=== PATIENT | female | born 1980 | race Caucasian/White ===

== ENCOUNTER → 2017-02-07 | Outpatient (CLI) | payer BC ==
[~2017-02-07] MED LIST: AMPH20TA2 PO; HYDR-5688 PO; IBUP-1050 PO; LEVO112T4 PO; ONDA8TAB6 PO
== END | disposition home or self-care (01) ==
LOC: C.PAPS 13:56
PROVIDERS: ATTEND Obstetrics & Gynecology
DX: Z01.419 Encounter for gynecological examination (general) (routine) without abnormal findings (principal); R87.610 Atypical squamous cells of undetermined significance on cytologic smear of cervix (ASC-US); Z11.51 Encounter for screening for human papillomavirus (HPV)

== ENCOUNTER → 2017-02-07 | Outpatient (CLI) | payer BC ==
[~2017-02-07] MED LIST changes: +GADAVIST IV PRN
--- NOTE | 2017-02-07 20:09 | DIAGNOSTIC IMAGING REPORT ---
BRAIN COMBO HISTORY: 36 years-old Female HEADACHES chronic headaches with dizziness. History of fall. COMPARISON: None available TECHNIQUE: Multiplanar multisequence MRI of the brain was obtained both with and without the use of 7 mL Gadavist FINDINGS: There is no restricted diffusion. Midline structures including the corpus callosum, brainstem, optic chiasm, pineal and pituitary glands are within normal limits. No cerebellar tonsillar herniation. No significant cervical spine degenerative changes identified. No acute intracranial hemorrhage, midline shift, abnormal extra-axial collections, hydrocephalus or intracranial mass identified. There are a few punctate foci of increased T2/FLAIR signal within the subcortical and periventricular white matter of the cerebral hemispheres bilaterally (see bookmarks). There is no abnormal intra-axial or extra-axial enhancement identified. The major flow voids at the level of the skull base are patent. Orbits are symmetric. Mastoid air cells and paranasal sinuses are generally clear. Scalp, calvarium and soft tissues are unremarkable. IMPRESSION: 1. No acute intracranial abnormality identified. No abnormal enhancement. 2. A few scattered punctate foci of increased T2/FLAIR signal are seen within the periventricular and subcortical white matter of the cerebral hemispheres bilaterally, likely of no clinical significance. Differential considerations would include gliosis from chronic migraines or early chronic microvascular ischemic changes among other etiologies. The above report was generated using voice recognition software. It may contain grammatical, syntax or spelling errors. Electronically signed by: Brad Isabel M.D. 02/07/2017 8:08 PM Dictated Date/Time: 02/07/2017 8:00 PM
== END | disposition home or self-care (01) ==
LOC: C.MRI 18:22
PROVIDERS: ATTEND Family Medicine
DX: R51 Headache (principal)

== ENCOUNTER → 2017-02-14 | Outpatient (CLI) | payer BC ==
[~2017-02-14] MED LIST changes: -GADAVIST IV PRN
--- NOTE | 2017-02-14 12:37 | DIAGNOSTIC IMAGING REPORT ---
Brain MRA HISTORY: HEADACHE TECHNIQUE: 3-D [id number] MRA of the brain was performed without contrast. COMPARISON STUDY: Brain MRI 02/07/2017. FINDINGS: Visualized intracranial internal carotid arteries, distal vertebral arteries, and basilar artery are widely patent. 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 IMPRESSION: No significant stenosis, occlusion, or aneurysm within the [place] of [place]. Electronically signed by: Oniel Michelle M.D. 02/14/2017 12:36 PM Dictated Date/Time: 02/14/2017 12:32 PM
== END | disposition home or self-care (01) ==
LOC: C.MRI 11:43
PROVIDERS: ATTEND Family Medicine
DX: R51 Headache (principal)

== ENCOUNTER 2019-08-25 08:02 | Observation (INO) ==
--- NOTE | 2019-08-07 10:35 | PAT Medication Instructions ---
Medication Instructions Date of Service August 07, 2019 Home Medications dextroamphetamine-amphetamine 25 mg PO QAM levothyroxine 112 mcg PO QAM fluticasone propionate 50 mcg/actuation nasal spray,suspension 2 sprays INTRANASAL QAM ibuprofen 200 mg tablet 800 mg PO TID PRN dextroamphetamine-amphetamine 10 mg tablet 5 - 10 mg PO QPM verapamil 180 mg PO QAM ASK your surgeon for instructions ibuprofen 200 mg tablet 800 mg PO TID PRN DO NOT take the morning of surgery dextroamphetamine-amphetamine 25 mg PO QAM Take morning of surgery With a small sip of water, OTHERWISE NOTHING TO EAT OR DRINK AFTER MIDNIGHT: levothyroxine 112 mcg PO QAM fluticasone propionate 50 mcg/actuation nasal spray,suspension 2 sprays INTR ANASAL QAM verapamil 180 mg PO QAM Take evening before surgery dextroamphetamine-amphetamine 10 mg tablet 5 - 10 mg PO QPM Other Notes If you have any questions please call us at [phone] or [phone] or [phone] or [phone]
--- NOTE | 2019-08-07 15:28 | Anesthesiology Consultation ---
Date of Service August 07, 2019 Assessment & Plan (1) Encounter for pre-operative examination: COVID Status: As of 08/05 nurse assessment, patient denies travel to endemic area, known exposure/sick contacts, or symptoms of COVID19. Preoperative COVID19 testing to be completed prior to surgery. TEST AM DOS. Chart Review Chart Review: Acceptable Risk for Surgery and Patient seen in Pre Admission Testing Teaching & Discussion Instructed NPO after midnight before surgery, except medications with 15 cc of water. Medication instructions provided according to the PAT guidelines. History Surgery Operation Date: 08/25/19 09:50 Proposed Procedures p Robotic Total Laparoscopic Hysterectomy - Jessica Myers MD Height/Weight Height: 5 ft 3 in Weight: 71.8 kg Allergies Allergy/AdvReac Type Severity Reaction Status Date / Time No Known Allergies Allergy Verified 08/07/19 14:13 Medications Home Medications Medication Instructions Recorded Confirmed Last Taken dextroamphetamine-amphetamine 25 mg PO QAM 02/11/18 07/31/19 02/10/18 levothyroxine 112 mcg PO QAM 02/11/18 08/07/19 02/11/18 fluticasone propionate 50 2 sprays INTRANASAL QAM #1 gm 09/19/18 08/07/19 Unknown mcg/actuation nasal spray,suspension ibuprofen 200 mg tablet 800 mg PO TID PRN tab 09/19/18 08/07/19 Unknown dextroamphetamine-amphetamine 10 5 - 10 mg PO QPM 10/01/18 08/07/19 Unknown mg tablet verapamil 180 mg PO QAM 07/31/19 08/07/19 Unknown Past Medical History Medical History ADHD Benign essential hypertension Depression Genital warts Gestational diabetes Hypothyroidism Migraine Spina bifida DX'D AGE 12 YRS Varicella Exercise / Class Metabolic Activity II 4-5 Yardwork/Stairs/Walk up hill Past Family History Family History Grandfather (Maternal) TIA (transient ischemic attack) Myocardial infarction Kidney disease Father Hypertension Grandmother (Maternal) Malignant neoplasm of urinary bladder Grandmother (Paternal) Diabetic neuropathy Cardiac disorder Diabetes Grandfather Stroke Grandmother Diabetes Aunt Breast cancer, Onset Age: 64 Denies family history of Ovarian cancer Colorectal cancer Past Surgical History Surgical History History of cholecystectomy History of cryosurgery History of lumbar spinal fusion Past Anesthesia History No Hx of Anesthesia Complications FHX = mother = severe PONV History of PONV No Hx of PONV and No Hx of Motion Sickness Social History Smoking Status: Former smoker Do You Dip or Chew Tobacco: No Smoking End Date: QUIT 2002 Hx Alcohol Use: Yes Alcohol type: wine and hard liquor alcohol intake frequency: a few times a month Hx Substance Use: Yes substance use type: marijuana Substance Use Type Other:: MEDICAL MARIJUANA CARD-USES 2-5 X DAILY for anxiety Review of Systems Pt denies any recent chest pain, shortness of breath, palpitations, cough, fever or URI. Physical Exam Vital Signs BP: 116/84 P: 81bpm SPO2: 98% RA T: 98.2 F R: 16 ENMT Mouth: no dental restorations, no chipped teeth and no loose teeth Thyromental Distance: > or= 3.5 Finger Breadths (3.5) Mallampati Class: II Neck normal visual inspection; neck extension not limited Respiratory normal respiratory effort Auscultation: lungs clear to auscultation bilaterally Cardiovascular Rate/Rhythm: regular rate and regular rhythm Heart Sounds: no murmur Extremities: no edema Testing Laboratory Results 08/07/19 15:44 Blood Type O Positive 08/07/19 15:44 Antibody Screen NEGATIVE 08/07/19 15:44
[2019-08-07 16:07] LABS: Basophils # (auto) 0.02 K/uL (0-0.2); Basophils % (auto) 0.3 %; Eosinophils # (auto) 0.09 K/uL (0-0.5); Eosinophils % (auto) 1.5 %; Hematocrit (blood only) 39.2 % (37-47); Hemoglobin 13.1 g/dL (12.0-16.0); Immature Granulocytes # (auto) 0.01 K/uL (0.00-0.02); Immature Granulocytes % (auto) 0.2 %; Lymphocytes # (auto) 1.41 K/uL (1.2-3.4); Lymphocytes % (auto) 23.2 %; Mean Corpuscular Hemoglobin 30.8 pg (25-34); Mean Corpuscular Hgb Conc 33.4 g/dL (32-36); Mean Platelet Volume 10.6 fL (7.4-10.4); Monocytes % (auto) 4.9 %; Neutrophils # (auto) 4.25 K/uL (1.4-6.5); Neutrophils % (auto) 69.9 %; Platelet Count 208 K/uL (130-400); RDW Coefficient of Variation 13.1 % (11.5-14.5); RDW Standard Deviation 43.8 fL (36.4-46.3); Red Blood Count 4.26 M/uL (4.2-5.4); White Blood Count 6.08 K/uL (4.8-10.8)
[~2019-08-25 08:02] MED LIST changes: +ACETAMINOPHEN 1000 MG/100 ML IV IV ONE; -AMPH20TA2 PO; +CEFAZOLIN 2000MG 2,000 MG/15 ML SYR IV SCH; -HYDR-5688 PO; -IBUP-1050 PO; +LACTATED RINGER'S 1,000 ML IV SCH; -LEVO112T4 PO; +LR 15ML/HR IV SCH; -ONDA8TAB6 PO
[2019-08-25] MEDS ORDERED: ONDANSETRON INJ 2 MG/ML 2 ML VIAL IV PRN ×2 (09:44→15:07)
[2019-08-25] MEDS ORDERED: HYDROmorphone INJ 1 MG/ML SYRINGE IV PRN (09:44)
[2019-08-25] MEDS ORDERED: ePHEDrine sulfate 50 MG/ML AMP IV PRN (09:44)
[2019-08-25] MEDS ORDERED: ATROPINE SULFATE 0.1 MG/ML 10ML SYR IV PRN (09:44)
[2019-08-25] MEDS ORDERED: PHENYLEPHRINE 100MCG/ML 5ML SYR IV PRN (09:44)
[2019-08-25] MEDS ORDERED: MEPERIDINE HCL 25 MG/ML CARP/VIAL IV PRN ×2 (09:44→15:07)
[2019-08-25] MEDS ORDERED: LABETALOL HCL IV 5 MG/ML 20ML IV PRN (09:44)
--- NOTE | 2019-08-25 12:15 | History & Physical Bridge Note ---
Date of Service August 25, 2019 History & Physical Bridge Note I have examined the patient, reviewed the History & Physical and in the interval since the performance of the History & Physical I have noted the following changes of clinical significance: no changes noted
[2019-08-25] MEDS ORDERED: ROCURONIUM BROMIDE 10 MG/ML 5 ML VIAL IV ONE (12:53)
[2019-08-25] MEDS ORDERED: DEXAMETHASONE SOD INJ 4 MG/ML VIAL ONE (12:53)
[2019-08-25] MEDS ORDERED: NEOSTIGMINE METHYLSULFATE 5 MG/5 ML SYR ONE (12:53)
[2019-08-25] MEDS ORDERED: GLYCOPYRROLATE 0.2 MG/ML VIAL ONE (12:53)
[2019-08-25] MEDS ORDERED: ONDANSETRON INJ 2 MG/ML 2 ML VIAL ONE (12:53)
[2019-08-25] MEDS ORDERED: LIDOCAINE HCL 2% 2 ML VIAL/AMP(20MG/ML) INFIL ONE (12:53)
[2019-08-25] MEDS ORDERED: PROPOFOL IV EMULSION 10 MG/ML 20 ML VIAL IV ONE (12:53)
[2019-08-25] MEDS ORDERED: MIDAZOLAM HCL 1 MG/ML 2ML VIAL ONE (12:54)
[2019-08-25] MEDS ORDERED: fentaNYL citrate 100 MCG/2 ML VIAL ONE ×3 (12:54→14:59)
[2019-08-25] MEDS ORDERED: METHYLENE BLUE 0.5% 10 ML VIAL ONE (13:10)
[2019-08-25] MEDS ORDERED: KETOROLAC 30 MG/ML VIAL ONE (14:34)
[2019-08-25] MEDS ORDERED: OXYCODONE/ACETAMINOPHEN 5mg/325mg TAB PO PRN ×2 (15:07)
[2019-08-25] MEDS ORDERED: IBUPROFEN 600 MG TAB PO PRN (15:07)
[2019-08-25] MEDS ORDERED: KETOROLAC 30 MG/ML VIAL IV PRN (15:07)
[2019-08-25] MEDS ORDERED: SIMETHICONE 80 MG CHEW PO PRN (15:07)
[2019-08-25] MEDS ORDERED: ACETAMINOPHEN 325 MG TAB PO PRN (15:07)
[2019-08-25] MEDS ORDERED: PROMETHAZINE HCL 25 MG in SODIUM CHLORIDE 0.9% 50 ML IV PRN (15:07)
[2019-08-25] MEDS ORDERED: MAGNESIUM HYDROXIDE SUSP 30 ML UDC PO PRN (15:07)
[2019-08-25] MEDS ORDERED: MEPERIDINE HCL 50 MG/ML CARP IV PRN (15:07)
[2019-08-25] MEDS ORDERED: PROMETHAZINE HCL 12.5 MG in SODIUM CHLORIDE 0.9% 50 ML IV PRN (15:07)
--- NOTE | 2019-08-25 15:13 | Operative Report ---
PG Post Operative Report Pre & Post Diagnosis Operation Date: 08/25/19 09:50 Pre-Op Diagnosis: Menorrhagia, Uterine Enlargement Post-Op Diagnosis: Menorrhagia, Uterine Enlargement I identified the patient and participated in the time-out.: Yes Procedure Operation Date: 08/25/19 09:50 Actual Procedures p Robotic Assisted Total Laparoscopic Hysterectomy and Salpingectomy(Not Applicable) - Jessica Myers MD Surgeon Jessica Myers MD Professional Application Designer MD Efraín Estimated Blood Loss 50 Findings Consistent with Post-Op Diagnosis Specimens Rectal appendage Uterus, Cervix, Tubes Anesthesia Type General Complications none Disposition Accompanied Patient To Recovery: Yes Disposition: Recovery Room Description of Procedure The patient was brought to the operating room and placed on the table in dorsal lithotomy position with yellofin stirrups, prepped and draped in standard sterile fashion, and a hard time out was taken prior to proceeding. The bladder was emptied via placement of hawkins catheter. A [employer] uterine manipulator was placed in the usual manner. Attention was then turned to the abdomen where optical entry was made at the umbilicus without complication. The abdomen was insufflated and the patient was placed in steep Trendelenburg. Under direct visualization, right and left lower quadrant ports were placed without complication. Survey of the abdomen revealed a uterus of the expected size, and normal tubes and ovaries bilaterally. There was incidental finding of either a phlebolith which was slightly adherent to the rectum vs a necrosed epiploica; this was gently plucked off the rectum and retrieved to send for pathology. The robot was then docked and surgery proceeded with the surgeon at the console. The ureter was identified on each side and traced along its course into the pelvis. Each fallopian tube in turn was elevated, dissected off the mesosalpinx and left attached to the uterine cornu. Each utero-ovarian ligament was ligated and then divided. Each round ligament was ligated and then divided. The anterior leaflets of the broad ligament were dissected to create a bladder flap which was gently mobilized downward below the colpotomy cup ridge. Each uterine artery was skeletonized, ligated, and then divided. Circumferential colpotomy was then completed following the colpotomy cup guide. The cervix, uterus and bilateral tubes were then retrieved en bloc via the vagina. The vaginal cuff was then closed using V-Roverto suture in the typical running non-locked fashion. The needle was retrieved through a trocar, and suction/irrigation was then used to remove any debris and ensure good hemostasis at all working sites. After administration of IV Methylene Blue dye, cystoscopy was then utilized to examine the bladder dome which was free of suture or injury. The ureteral orifices were observed until a good strong jet of blue stained urine was seen from each. The bladder was then drained. The robot was then undocked, and abdominal trocar sit es were closed using a UR6 at the umbilical fascia and 4-0 monocryl at each of the skin incisions. A dermabond dressing was applied to each site. A final vaginal exam ensured no materials were present in the vagina and the cuff was intact. The patient was then transferred in stable condition to the recovery room. I attest to the content of the Intraoperative Record and any orders documented therein. Any exceptions are noted below.
[2019-08-25] MEDS ORDERED: LACTATED RINGER'S 1,000 ML IV SCH (15:15)
[2019-08-25] MEDS: fentaNYL citrate 100 MCG/2 ML VIAL IV PRN ×4 (15:32→15:53)
--- NOTE | 2019-08-25 16:00 | Anesthesiology Progress Note ---
Date of Service August 25, 2019 Anesthesia Post Procedure Vital Signs Vital Signs: Temp Pulse Pulse Resp BP BP Pulse Ox 08/25/19 15:50 76 14 111/72 95 08/25/19 15:40 75 14 113/72 97 08/25/19 15:30 78 14 111/76 96 08/25/19 15:20 36.2 C L 75 18 116/73 98 08/25/19 08:25 36.8 C 74 18 115/80 97 Pain Intensity Lower Abdomen: Pain Intensity: 5 Transfer of Care Handoff Completed per policy Notes Mental Status: alert / awake / arousable Patient Amnestic to Procedure: Yes Nausea / Vomiting: adequately controlled Pain: adequately controlled Airway Patency, RR, SpO2: stable & adequate BP & HR: stable & adequate Hydration State: stable & adequate Anesthetic Complications: no major complications apparent
[2019-08-25 18:23] LABS: Hematocrit (blood only) 39.2 % (37-47); Hemoglobin 13.1 g/dL (12.0-16.0)
[2019-08-25] MEDS ORDERED: DOCUSATE SODIUM 100 MG CAP PO SCH (21:00)
--- NOTE | 2019-08-26 08:05 | Discharge Summary ---
Date of Service August 26, 2019 Discharge Data Procedures Performed Operation Date: 08/25/19 09:50 Actual Procedures p Robotic Assisted Total Laparoscopic Hysterectomy and Salpingectomy(Not Applicable) - Jessica Myers MD Hospital Course (1) Abnormal uterine bleeding (AUB): Patient underwent scheduled robotic TLH without complications, and was discharged to home on POD#0 at her request after meeting typical discharge criteria. She was provided with #20 percocet for prn pain, and has follow up planned in office for 2 and 6 weeks post op. Coding Level of Care Code None Diagnoses Abnormal uterine bleeding (AUB) N93.9
== END 2019-08-25 18:55 | disposition home or self-care (01) ==
LOC: ASU 08:02 → 4N 08:02